=== PATIENT | female | born 1945 | race Caucasian/White ===

== ENCOUNTER 2018-04-29 10:41 | Outpatient (CLI) | payer OTHER ==
[2015-01-04 11:46] VITALS: BP 144/72
[2018-04-29 12:23] LABS: eGFR (Non-African) > 60
[2018-04-29 16:52] LABS: BASO % 0.7 % (0.0-1.5); EOS % 1.6 % (0.0-6.8); LYMPH ABS # 1.94 thou/uL (0.60-4.00); MCH. 29.9 pg (28.0-34.0); MCV 91.5 fL (80.0-100.0); MONOCYTE % 6.4 % (0.0-11.0); MONOCYTE ABS # 0.36 thou/uL (0.00-0.90); PLATELET COUNT 201 thou/uL (130-400)
== END 2018-04-29 10:43 ==
LOC: LAB 10:41
PROVIDERS: ATTEND Family Medicine
DX: Z13.6 Encounter for screening for cardiovascular disorders (principal); R42 Dizziness and giddiness
CPT/HCPCS: 36415; 80053; 80061; 85025